=== PATIENT | male | born 2000 | race African-American/Black ===

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

== ENCOUNTER 2019-02-23 18:45 | Emergency (ER) | payer OTHER ==
[~2019-02-23] VITALS: Ht 165.1 cm; Wt 97.1 kg
[2019-02-23 19:18] VITALS: BP 101/69; Ht 165.1 cm; Wt 97.1 kg
== END 2019-02-23 20:07 | disposition home or self-care (01) ==
LOC: ED 18:45
DX: B34.9 Viral infection, unspecified (principal)